=== PATIENT | male | born 1950 | race Caucasian/White ===

== ENCOUNTER 2017-03-01 00:06 | Emergency (ER) ==
[2017-03-01 00:12] VITALS: BP 164/82; TEMP 97.1; BMI 25.8
--- NOTE | 2017-03-01 00:22 | ED.PDOC ---
General ED Provider: Dr. CRISTA GROSS-ER Chief Complaint: Eye Problem Stated Complaint: i think i have something in my eye--then in triage he says "i dont feel it===it must have fallen out" Time Seen by Physician: 00:15 Mode of Arrival: Walk-In Information Source: Patient, Family Exam Limitations: No limitations Primary Care Provider: NIESHA SAVAGE Nursing and Triage Documentation Reviewed and Agree: Yes EENT Complaint Exam - Eye Complaint/Exam Onset/Duration: one hour while in bed Symptoms Are: Still present Timing: Constant Initial Severity: Mild Current Severity: Mild Location: Discreet, Left Character: Reports: Foreign body sensation. Denies: Sharp, Dull, Throbbing Aggravating: Reports: Blinking Alleviating: Reports: None, Darkness Associated Signs and Symptoms: Denies: Photophobia, Clear drainage, Purulent drainage, Vision impairment, Fever, Swelling Related History: Reports: Foreign body Eye Surgical History: Reports: None Penetrating Injury Risk Factors: None Globe Rupture Risk Factors: None Acute Glaucoma Risk Factors: None Optic Artery Occlusion Risk Factors: None Visual Field: Normal Extraocular Movement: Normal Orbit Findings: Normal Globe Findings: Intact Lid Findings: Normal Corneal Findings: Clear Fluorescein Uptake: No Fundi: Normal Slit Lamp Used: No Differential Diagnoses: Corneal Abrasion, Foreign Body Review of Systems - Review Of Systems Constitutional: Reports: No symptoms Eyes: Reports: Foreign body sensation Ears, Nose, Mouth, Throat: Reports: No symptoms, Throat swelling Respiratory: Reports: No symptoms Cardiac: Reports: No symptoms GI: Reports: No symptoms : Reports: No symptoms Musculoskeletal: Reports: No symptoms Skin: Reports: No symptoms Neurological: Reports: No symptoms Endocrine: Reports: No symptoms Hematologic/Lymphatic: Reports: No symptoms All Other Systems: Reviewed and Negative Past Medical History - Past Medical History Previously Healthy: Yes Endocrine: Reports: Unknown Cardiovascular: Reports: Unknown Respiratory: Reports: Unknown Hematological: Reports: Unknown Gastrointestinal: Reports: Unknown Genitourinary: Reports: Unknown Neuro/Psych: Reports: Unknown Musculoskeletal: Reports: Unknown Cancer: Reports: Unknown - Surgical History General Surgical History: Reports: Unknown - Family History Family History: Reports: Unknown - Social History Smoking Status: Never smoker Hx Substance Use: No Alcohol Screening: None Lives: With family - Immunizations Tetanus Shot up to Date: Yes Physical Exam - Physical Exam Appearance: Well-appearing, No pain distress, Well-nourished Eyes: KE, EOMI, Conjunctiva clear ENT: Ears normal Neck: Supple Respiratory: Airway patent Cardiovascular: RRR, Pulses normal, No rub, No murmur GI/: Soft, Nontender, No masses, Bowel sounds normal, No Organomegaly Musculoskeletal: Normal strength Skin: Warm, Dry, Normal color Neurological: Sensation intact, Motor intact, Reflexes intact, Cranial nerves intact, Alert, Oriented Psychiatric: Affect appropriate, Mood appropriate Re-Evaluation - Re-Evaluation Time of Re-Evaluation: 00:46 Status: Improved (no foreign body sensation) Vital Signs Stable: Yes Pain Level: 0 Appearance: NAD Lungs: Clear Skin: Warm and Dry Neuro: Alert and Oriented X3 CV: RRR Critical Care Note - Critical Care Note Total Time (mins): 0 Course - Course Orders, Labs, Meds: Orders Category Date Time Status Eye [ED EYE PATCH] .ONCE EMERGENCY 03/01/17 00:09 Active Balanced Salt Solution [Eye-Stream] MEDS 03/01/17 00:09 Discontinued 1 bottle OP ONCE STA Fluorescein Sodium [Fluorets] MEDS 03/01/17 00:08 Discontinued 1 strip OP ONCE STA Tetracaine HCl/Pf [Tetracaine 0.5% Unit-Dose] MEDS 03/01/17 00:08 Discontinued 2 drop OP ONCE STA Medications Discontinued Medications Generic Name Dose Route Start Last Admin Trade Name Freq PRN Reason Stop Dose Admin Eye Irrigation Solution 1 bottle 03/01/17 00:09 Eye-Stream OP 03/01/17 00:10 ONCE STA Fluorescein Sodium 1 strip 03/01/17 00:08 Fluorets OP 03/01/17 00:09 ONCE STA Tetracaine HCl 2 drop 03/01/17 00:08 Tetracaine 0.5% Unit-Dose OP 03/01/17 00:09 ONCE STA Vital Signs: Temp Pulse Resp BP Pulse Ox 03/01/17 00:07 97.1 F L 68 16 164/82 H 97 Departure - Departure Time of Disposition: 00:46 Disposition: HOME SELF-CARE Discharge Problem: Foreign body in eye Qualifiers: Encounter type: initial encounter Laterality: left Qualifier Code: (T15.92XA) Foreign body on external eye, part unspecified, left eye, initial encounter Instructions: Eye Foreign Body (ED) Condition: Good Pt referred to PMD for follow-up: Yes Additional Instructions: return prn Allergies/Adverse Reactions: Allergies No Known Allergies Allergy (Unverified 03/01/17 00:11) Home Medications: Ambulatory Orders Triamterene/Hydrochlorothiazid [Dyazide] 1 cap PO DAILY 03/29/13 Disposition Discussed With: Patient, Family
[2017-03-01] MEDS: EYE-STREAM OP STA (00:25)
[2017-03-01] MEDS: TETRACAINE 0.5% UNIT-DOSE OP STA (00:26)
[2017-03-01] MEDS: FLUORETS OP STA (00:26)
== END 2017-03-01 00:30 | disposition home or self-care (01) ==
LOC: ED 00:06
DX: T15.92XA Foreign body on external eye, part unspecified, left eye, initial encounter (principal)
CPT/HCPCS: 99282

== ENCOUNTER 2017-09-07 15:27 | Inpatient (IN) ==
[2017-09-07 16:19] VITALS: BMI 25.2
[2017-09-07] MEDS ORDERED: MORPHINE 2 MG/ML SYRINGE IVP PRN (16:38)
[2017-09-07] MEDS ORDERED: MOTRIN PO PRN (16:39)
[2017-09-07] MEDS ORDERED: TYLENOL PO PRN (16:39)
[2017-09-07] MEDS ORDERED: SODIUM CHLORIDE 1,000 ML IV SCH (17:00)
[2017-09-07] MEDS: DUONEB NEB SCH (19:50)
[2017-09-07] MEDS ORDERED: TAMIFLU PO SCH (22:00)
[2017-09-07] MEDS ORDERED: TAMIFLU ONE (22:06)
[2017-09-07] MEDS: SODIUM CHLORIDE 0.9%-KCL 20 MEQ 1,000 ML IV SCH (22:08)
[2017-09-07] MEDS: SOLU-MEDROL 125 MG IVP SCH (22:09)
[2017-09-08] MEDS: DUONEB NEB SCH ×4 (05:50→21:00)
[2017-09-08] MEDS: SODIUM CHLORIDE 0.9%-KCL 20 MEQ 1,000 ML IV SCH ×2 (07:57→18:36)
--- NOTE | 2017-09-08 08:10 | DI ---
EXAM: Chest two view, frontal and lateral views. HISTORY: Cough. COMPARISON: None available. FINDINGS: The heart size is normal. There is no pulmonary vascular congestion. Calcified granuloma tous changes noted. There is a 1 cm left perihilar nodular density projecting just above the posteri or seventh rib on the frontal view which is not clearly seen on the lateral view. Otherwise, the edelmira gs are clear. No pleural effusion or pneumothorax is seen. No acute osseous abnormality identified. IMPRESSION: 1. No acute cardiopulmonary process. 2. Left perihilar nodular density which may be due to superimposition of structures. Consider chest CT for further evaluation.
[2017-09-08] MEDS: TAMIFLU PO SCH ×2 (09:36→20:24)
[2017-09-08] MEDS: SOLU-MEDROL 125 MG IVP SCH ×2 (09:36→20:24)
[2017-09-08] MEDS: HYDROCHLOROTHIAZID PO SCH (12:00)
[2017-09-08] MEDS: TRIAMTERENE PO SCH (12:00)
[2017-09-09] MEDS: SODIUM CHLORIDE 0.9%-KCL 20 MEQ 1,000 ML IV SCH ×2 (03:59→13:39)
[2017-09-09] MEDS: DUONEB NEB SCH ×3 (05:40→14:07)
[2017-09-09] MEDS: TAMIFLU PO SCH ×2 (08:37→21:15)
[2017-09-09] MEDS: SOLU-MEDROL 125 MG IVP SCH ×2 (08:41→21:15)
[2017-09-09] MEDS: HYDROCHLOROTHIAZID PO SCH (09:03)
[2017-09-09] MEDS: TRIAMTERENE PO SCH (09:03)
[2017-09-10] MEDS: SODIUM CHLORIDE 0.9%-KCL 20 MEQ 1,000 ML IV SCH (00:13)
[2017-09-10] MEDS: DUONEB NEB SCH ×4 (00:42→14:13)
[2017-09-10] MEDS ORDERED: ZITHROMAX PO STA (08:16)
[2017-09-10] MEDS: TAMIFLU PO SCH (08:43)
[2017-09-10] MEDS: HYDROCHLOROTHIAZID PO SCH (08:43)
[2017-09-10] MEDS: TRIAMTERENE PO SCH (08:43)
[2017-09-10 14:18] VITALS: BP 122/64; TEMP 97
--- NOTE | 2017-09-10 14:34 | PN ---
DATE OF SERVICE: 09/09/17 CHIEF COMPLAINT: "I feel awful." SUBJECTIVE: Allan was admitted two days ago with influenza. He was flu B positive. He had been ill since the . He had significant fatigue and weakness. I was not surprised when his lab work came back with abnormalities. He has a general GFR of around 57; it was 32 on admission. He always tends to occasionally run a low white count. After admission it was 3.3 and dropped to 1.67 and even went on to develop new thrombocytopenia of 108 following the 103. He is voiding well we have given him fluids aggressively; he is feeling better. His appetite has turned and is eating some. He has less cough and no shortness of breath. His chest x-ray on admission showed left perihilar nodular density with plans to follow that up. He is stooling without diarrhea, voiding without dysuria. PHYSICAL EXAMINATION: V/S: Temperature 97.5, pulse 79, BP 115/61, respirations 14. GENERAL: Pleasant, no obvious distress. HEENT: Mucous membranes moist. Eyegrounds are pink. Nonicteric sclerae. No posterior pharyngeal redness or swelling. NECK: No mass or thyroid and supple. CHEST: Clear. CARDIOVASCULAR: S1, S2 without murmur. GI: No organomegaly or tenderness. LABS: White count 4.81 from 1.69, hemoglobin 14.8 with fluids down from 16.9 and GFR 43 from initial mid 20s. ASSESSMENT: 1. INFLUENZA B 2. COUGH 3. BRONCHITIS - ACUTE 4. WEAKNESS 5. NEUTROPENIA 6. THROMBOCYTOPENIA 7. ACUTE RENAL INSUFFICIENCY - IMPROVED 8. CHEST X-RAY - LEFT PERIHILAR NODULAR DENSITY PLAN: 1. Continue fluids, one additional 12 to 24 hours. 2. If labs continue to improve, discharge tomorrow. 3. Followup chest x-ray will be later. [facility]
[2017-09-11] MEDS ORDERED: DYAZIDE PO SCH (09:00)
[2017-09-11] MEDS ORDERED: ZITHROMAX PO SCH (09:00)
== END 2017-09-10 18:00 | disposition home or self-care (01) | DRG 153 ==
LOC: MEDSURG B 15:27 → OBSVTOIN 16:00
PROVIDERS: ADMIT Family Medicine; ATTEND Family Medicine
DX: J11.1 Influenza due to unidentified influenza virus with other respiratory manifestations (principal); J20.9 Acute bronchitis, unspecified; R53.1 Weakness; D70.9 Neutropenia, unspecified; D69.6 Thrombocytopenia, unspecified; N28.9 Disorder of kidney and ureter, unspecified; R91.1 Solitary pulmonary nodule; I10 Essential (primary) hypertension; K21.9 Gastro-esophageal reflux disease without esophagitis; N40.0 Benign prostatic hyperplasia without lower urinary tract symptoms; Z79.899 Other long term (current) drug therapy
CPT/HCPCS: 36415; 80048; 80053; 81001; 83880; 85007; 85025; 94640

== ENCOUNTER 2018-11-08 15:04 | Outpatient (CLI) | payer OTHER ==
--- NOTE | 2018-11-08 15:46 | DI ---
EXAM: CHEST FRONTAL AND LATERAL VIEWS HISTORY: Chest pain breathing. COMPARISON: 09/07/2017 FINDINGS: Heart size appears normal. The indeterminate left suprahilar density previously mentioned has not changed measuring about 8 mm. This may represent a bronchovascular shadow. No acute infilt rates or vascular congestion. No pleural fluid. No acute bony finding. IMPRESSION: 1. No acute process.
== END 2018-11-08 15:05 | disposition home or self-care (01) ==
LOC: RAD 15:04
PROVIDERS: ATTEND Family Medicine
DX: R07.1 Chest pain on breathing (principal)

== ENCOUNTER 2018-11-09 09:31 | Outpatient (CLI) | payer OTHER ==
--- NOTE | 2018-11-09 13:07 | CT ---
EXAM: CT chest with contrast HISTORY: Chest wall pain COMPARISON: None TECHNIQUE: CT chest performed with intravenous contrast. Coronal and sagittal reformatted images ob tained. FINDINGS: Thyroid and thoracic inlet appear normal. Heart normal in size. No pericardial effusion. Aorta normal in caliber. Esophagus unremarkable. There are gallstones. Visualized portion upper abdomen demonstrates no acute abnormality. No acute abnormalities of the bones. Degenerative change in the spine. Granulomatous calcification. No lymphadenopathy. Mild right basilar atelectasis, th ough it would be difficult to exclude a region of consolidation. Mild left basilar atelectasis. The re are filling defects in the right lower lobe pulmonary arteries best seen on axial image 33 and cor onal image 55 and filling defect in the right upper lobe pulmonary arteries best seen on coronal imag e 36. Evaluation of the pulmonary arteries is somewhat limited due to contrast timing as examination not performed as angiography. IMPRESSION: 1. Pulmonary embolism involving at least the right lower lobe and right upper lobe. 2. Right basilar atelectasis, though it would be difficult to exclude a small area of infarct. 3. Cholelithiasis. Findings called to Dr. Sheridan approximately 12:55 p.m. 11/09/2018.
--- NOTE | 2018-11-09 15:09 | US ---
EXAM: Ultrasound venous Doppler right and left lower extermity HISTORY: Pulmonary embolism COMPARISON: None TECHNIQUE: Venous duplex ultrasound of the right and left lower extremity was performed using color, owens-scale, and Doppler flow imaging. FINDINGS: There is normal color flow and compression of the right and left common femoral, greater s aphenous, profunda femoral, femoral, popliteal, peroneal, posterior tibial, and anterior tibial veins without evidence of intraluminal thrombus. No reflux is identified. IMPRESSION: No right or left lower extremity deep venous thrombosis.
== END 2018-11-09 09:32 | disposition home or self-care (01) ==
LOC: RAD 09:31
PROVIDERS: ATTEND Family Medicine
DX: I26.99 Other pulmonary embolism without acute cor pulmonale (principal); Z79.01 Long term (current) use of anticoagulants; R07.1 Chest pain on breathing
CPT/HCPCS: 36415; 82565

== ENCOUNTER 2018-11-09 15:12 | Emergency (ER) | payer OTHER ==
--- NOTE | 2018-11-09 15:21 | ED.PDOC ---
General ED Provider: Dr. JEMMA LOUIS Chief Complaint: Weakness Stated Complaint: Had CT this morning - PE protocol which was Positive for PE. Returned to Radiology for US studies LEs for DVTs. Became dizzy and sweaty and brought to ER. Time Seen by Physician: 15:17 Primary Care Provider: NIESHA SHERIDAN Nursing and Triage Documentation Reviewed and Agree: Yes Does patient meet sepsis criteria?: No System Inflammatory Response Syndrome: Not Applicable Sepsis Protocol: For patient's 13 years and over: Temp is 96.8 and below OR 101 and greater Pulse >90 BPM Resp >20/minute Acutely Altered Mental Status Are patient's symptoms suggestive of a new infection, such as: -Pneumonia -Skin, Soft Tissue -Endocarditis -UTI -Bone, Joint Infection -Implantable Device -Acute Abdominal Infection -Wound Infection -Meningitis -Blood Stream Catheter Infection -Unknown Review of Systems - Review Of Systems Constitutional: Reports: Malaise, Weakness Eyes: Reports: Blurred vision, Other (Closing eyes because of dizziness) Respiratory: Reports: Other (R side pain with deep breathing) Cardiac: Reports: Chest pain (R sided says with his PE) All Other Systems: Reviewed and Negative Past Medical History - Past Medical History Previously Healthy: Yes Endocrine: Reports: Unknown Cardiovascular: Reports: Unknown Respiratory: Reports: Unknown Hematological: Reports: Unknown Gastrointestinal: Reports: Unknown Genitourinary: Reports: Unknown Neuro/Psych: Reports: Unknown Musculoskeletal: Reports: Unknown Cancer: Reports: Unknown - Surgical History General Surgical History: Reports: Unknown - Family History Family History: Reports: Unknown - Social History Smoking Status: Never smoker Hx Substance Use: No Alcohol Screening: None Physical Exam - Physical Exam Appearance: Ill-appearing (Eyes closed; dizzy, not answering direct questions) Ill-appearing: Mild Pain Distress: None (admits to chest pain right side with deep breathing) Neck: Supple Respiratory: Airway patent, Breath sounds clear, Breath sounds equal, Respirations nonlabored Cardiovascular: RRR, Pulses normal (Bilat radial) GI/: Soft, Nontender Musculoskeletal: Normal strength, ROM intact, No edema Skin: Warm, Diaphoretic Neurological: Sensation intact, Motor intact, Alert (responds but evasive with some questioning) Psychiatric: Affect appropriate (difficult to assess; aparently anxious) Interpretation - Radiology Interpretation Radiology Interpretation By: Radiologist Radiology Results: No acute changes Exam Interpreted: CT Scan (Head without) Radiology Interpretation By: Radiologist Radiology Results: Positive (No changes in acute right sided pulmonay emboli) - Aircraft Maintenance Engineer Time of Aircraft Maintenance Engineer Interpretation: 15:08 Rate: Normal Rhythm: Sinus Ectopy: None - EKG Interpretation Time of EKG #1: 15:08 Rate: Normal, French Rhythm: Sinus Ectopy: None Interpretation: Non specific ST changes Physician Notification - Case Discussed Physician Notified: Dr Sheridan Time of Notification: 16:00 (Will be over to eval pt) Physician Notified: Dr Sheridan Time of Notification: 17:00 (Dr. Sheridan disccussed CTA with Radiologist; plan developed. Follow up conference with RN with CT results reported - direct admit to [facility] ICU) Critical Care Note - Critical Care Note Total Time (mins): 45 Comments: CT study from this AM (Dr. Sheridan) reviewed as well as circumstances of being in Radiology for DVT study and emergent transfer to ER. Labs reviewed; pt hx discussed with Dr Sheridan. CT of head without contrast based on change of status and hx recent fall with treatment - tx for PE and CTA ordered. Results disussed with Dr. Sheridan. Family included in overall discussions and plan making. Course - Course Hematology/Chemistry: 11/09/18 15:29 11/09/18 15:29 Orders, Labs, Meds: Lab Review 11/09/18 11/09/18 11/09/18 15:28 15:29 15:29 WBC 5.96 RBC 5.41 Hgb 16.6 Hct 46.4 MCV 85.8 MCH 30.7 MCHC 35.8 H RDW Coeff of Ping 12.1 Plt Count 142 Immature Gran % (Auto) 0.2 Neut % (Auto) 58.7 Lymph % (Auto) 28.7 [place] % (Auto) 10.9 H Eos % (Auto) 1.0 Baso % (Auto) 0.5 Immature Gran # (Auto) 0.0 Neut # (Auto) 3.5 Lymph # (Auto) 1.7 [place] # (Auto) 0.7 Eos # (Auto) 0.1 Baso # (Auto) 0.0 Puncture Site Lb O2 Saturation 95.0 ABG pH 7.415 ABG pCO2 33.4 L ABG pO2 72.0 L ABG HCO3 21.5 L ABG Total CO2 22 ABG Base Excess -3 L FiO2 % 21.0 Sodium 135.6 Potassium 2.93 L Chloride 99.5 Carbon Dioxide 23.8 Anion Gap 15.23 BUN 17.7 Creatinine 1.29 H Estimated GFR (MDRD) 56.00 BUN/Creatinine Ratio 13.72 Glucose 102.7 Calcium 9.34 Total Bilirubin 1.06 AST 28.7 ALT 21.0 Alkaline Phosphatase 77.8 Troponin I < 0.012 Total Protein 7.62 Albumin 4.85 Globulin 2.77 Albumin/Globulin Ratio 1.75 Orders Category Date Time Status ABG DRAW REQUEST Routine CARDIO 11/09/18 15:29 Completed EKG-(ED ONLY) Stat CARDIO 11/09/18 15:22 Completed NPO REMINDER: IMAGING ONCE CARE 11/09/18 16:04 Completed OXYGEN [ED APPLY O2] .ONCE EMERGENCY 11/09/18 15:29 Active ABG Stat LAB 11/09/18 15:28 Completed CBC W/ AUTO DIFF Stat LAB 11/09/18 15:29 Completed COMPREHENSIVE METABOLIC PANEL Stat LAB 11/09/18 15:29 Completed TROPONIN I Stat LAB 11/09/18 15:29 Completed Enoxaparin Sodium [Lovenox] MEDS 11/09/18 17:04 Discontinued 80 mg SUBCUT ONCE STA Potassium Chloride [Potassium Chloride Premix Run] 100 MEDS 11/09/18 16:36 Discontinued ml IV .STK-MED Potassium Chloride [Potassium Chloride Premix Run] 20 MEDS 11/09/18 16:33 Active meq Premix 100 ml Water 1 bag IV ONCE Sodium Chloride 0.9% [Sodium Chloride] 1,000 ml MEDS 11/09/18 15:58 Active IV 100 mls/hr CT CHEST PE PROTOCOL Stat RADS 11/09/18 16:[address] HEAD W/O CONTRAST Stat RADS 11/09/18 17:05 Completed Medications Generic Name Dose Route Start Last Admin Trade Name Freq PRN Reason Stop Dose Admin Sodium Chloride 1,000 mls @ 100 mls/hr 11/09/18 15:58 11/09/18 16:11 Sodium Chloride IV 11/10/18 01:57 100 mls/hr .Q10H STA Administration Potassium Chloride 20 meq/ 100 mls @ 50 mls/hr 11/09/18 16:33 11/09/18 16:45 Sterile Water IV 11/09/18 18:32 50 mls/hr ONCE STA Administration Discontinued Medications Generic Name Dose Route Start Last Admin Trade Name Nola PRN Reason Stop Dose Admin Enoxaparin Sodium 80 mg 11/09/18 17:04 11/09/18 18:06 Lovenox SUBCUT 11/09/18 17:05 80 mg ONCE STA Administration Vital Signs: Temp Pulse Resp BP Pulse Ox 11/09/18 18:00 75 136/84 98 11/09/18 17:14 77 139/80 99 11/09/18 16:30 72 20 130/77 98 11/09/18 16:00 71 20 124/76 97 11/09/18 15:15 84 20 138/72 93 L 11/09/18 15:12 97.7 F 77 20 148/71 H 94 L RAYMON Risk Score RAYMON Risk Score: Risk Score Odds of by 30D 0 0.1 (0.1-0.2) 1 0.3 (0.2-0.3) 2 0.4 (0.3-0.5) 3 0.7 (0.6-0.9) 4 1.2 (1.0-1.5) 5 2.2 (1.9-2.6) 6 3.0 (2.5-3.6) 7 4.8 (3.8-6.1) Departure - Departure Time of Disposition: 18:30 Disposition: TSF SHORT-TRM HOSP Discharge Problem: Pulmonary embolism Qualifiers: Pulmonary embolism type: other Chronicity: acute Acute cor pulmonale presence: without acute cor pulmonale Qualified Code(s): I26.99 - Other pulmonary embolism without acute cor pulmonale Condition: Stable Pt referred to PMD for follow-up: Yes (Follow up with primary care after hospitalization) IPMP verified?: No (NA) Allergies/Adverse Reactions: Allergies No Known Allergies Allergy (Verified 11/09/18 15:22) Home Medications: Ambulatory Orders Triamterene/Hydrochlorothiazid [Dyazide] 1 cap PO DAILY 03/29/13 Turmeric Root Extract [Turmeric Curcumin] 500 mg PO DAILY 11/09/18 Transfer Form Completed: Yes Disposition Discussed With: Patient, Family
[2018-11-09 15:27] VITALS: TEMP 97.7; BMI 25.7
[2018-11-09] MEDS ORDERED: SODIUM CHLORIDE 1,000 ML IV STA (15:58)
[2018-11-09] MEDS ORDERED: SODIUM CHLORIDE 0.9%-KCL 20 MEQ 1,000 ML IV STA (16:29)
[2018-11-09] MEDS ORDERED: POTASSIUM CHLORIDE PREMIX RUN 20 MEQ in PREMIX 100 ML WATER 1 BAG IV STA (16:33)
[2018-11-09] MEDS ORDERED: POTASSIUM CHLORIDE PREMIX RUN 100 ML IV ONE (16:36)
[2018-11-09] MEDS ORDERED: LOVENOX SUBCUT STA (17:04)
[2018-11-09] MEDS ORDERED: EPINEPHRINE 1 MG/ML AMP IM STA (17:28)
--- NOTE | 2018-11-09 17:57 | CT ---
EXAM: CT of the head without contrast History: Altered mental status. Technique: Multiplanar CT images through the head were obtained without the administration of IV con trast Findings: The visualized paranasal sinuses and mastoid air cells are clear in general. No acute calv arial abnormalities. Intracranially the ventricular and cisternal spaces are normal in size, shape and configuration for a patient of this age. No dominant mass or midline shift. No hydrocephalous. No acute intracranial hemorrhage or abnormal extraaxial fluid collections. Impression: No acute intracranial process
--- NOTE | 2018-11-09 18:05 | CT ---
EXAM: CTA of the chest. History: Pulmonary embolism seen on recent chest CT. Comparison: Chest CT 11/09/2018 Technique: Multiplanar CT images through the thorax were obtained following the administration of IV contrast. MIP images and 3-D reconstructions were also acquired. Findings: Heart size is upper limits of normal. 3.7 cm ectatic ascending aorta. No pericardial eff usion. No pathologically enlarged thoracic lymph nodes. No change in the right upper lobe and right lower lobe pulmonary emboli. Coronary calcifications. Increasing bibasilar lung infiltrates. No pneumothorax. No pleural fluid. No suspicious lung sylvain s or lung nodules. Within the visualized upper abdomen, cholelithiasis. No acute osseous abnormalities. Impression: 1. No change in the acute right-sided pulmonary emboli. 2. Increasing bibasilar lung infiltrates could represent aspiration pneumonitis or worsening depende nt atelectasis. 3. Cholelithiasis. 4. Coronary artery disease
[2018-11-09 18:51] VITALS: BP 117/77
== END 2018-11-09 18:55 | disposition short-term general hospital (02) ==
LOC: ED 15:12
DX: I26.99 Other pulmonary embolism without acute cor pulmonale (principal); R53.1 Weakness; R42 Dizziness and giddiness; R07.1 Chest pain on breathing
CPT/HCPCS: 36415; 80053; 82565; 82803; 82962; 84484; 85025; 93005; 93010; 96361; 96365; 96372; 99285; A9556

== ENCOUNTER 2018-11-09 19:06 | Outpatient (CLI) | payer OTHER ==
[2018-11-09 15:27] VITALS: BMI 25.7
== END 2018-11-09 19:29 | disposition short-term general hospital (02) ==
LOC: AMBL 19:06
PROVIDERS: ATTEND Emergency Medicine
DX: I26.99 Other pulmonary embolism without acute cor pulmonale (principal); R42 Dizziness and giddiness